=== PATIENT | female | born 1950 ===

== ENCOUNTER 2022-12-03 08:56 | Outpatient (OUT) | payer MEDICARE, SELFPAY ==
--- NOTE | 2022-12-03 09:03 | XR_ITS ---
The [address] [address] Patient Name: EDEN ZHAO MRN: [id number] date: 1950 Sex: F Assigned Patient Location: [facility] Current Patient Location: RAD Accession/Order Number: [id number] Exam Date: 12/03/2022 09:10 Report Date: 12/03/2022 10:59 At the request of: LEANNE SMITH Procedure: XR hip LT 2V w/ pelvis PROCEDURE: XR hip LT 2V w/ pelvis DATE: 12/03/2022 8:10 AM CDT COMPARISONS: 11/02/2022 CLINICAL INDICATION: Left Femur Fracture FINDINGS: There is a short intramedullary ruslan and an adjacent femoral head/neck screw, stable from previous exam, proximal left femur. There is some progression of the previously noted fracture site. There is sclerosis and callus formation at the fracture site consistent with some interval healing. Osseous structures remain in stable alignment. There is some diffuse bone demineralization, stable.. XR/XR hip LT 2V w/ pelvis IMPRESSION: Evidence of some healing of the left previously noted proximal femur fracture. Fracture fragments and hardware remain in stable alignment. Electronically authenticated by: MAHNAZ BETANCOURT Date: 12/03/2022 10:59
== END 2022-12-03 08:57 | disposition home or self-care (01) ==
LOC: RAD 08:56
PROVIDERS: Visit Provider Orthopaedic Surgery
DX: S72.142A Displaced intertrochanteric fracture of left femur, initial encounter for closed fracture (principal)
CPT/HCPCS: 73502